=== PATIENT | female | born 1960 | race Caucasian/White ===

== ENCOUNTER 2025-04-02 09:05 | Day surgery (SDC) | payer MEDICARE, OTHER ==
[~2025-04-02 09:05] MED LIST: ceFAZolin 2 GM in Premix Bag 1 BAG IV ONE; ceFAZolin 2 GM in Sodium Chloride 0.9% 100 ML IV ONE; metroNIDAZOLE/Normal Saline 500 MG in Premix Bag 1 BAG IV ONE
[2025-04-02] MEDS ORDERED: Propofol 200 MG/20 ML SDV ONE (09:06)
[2025-04-02] MEDS ORDERED: Midazolam 1 MG/ML 2 ML SDV ONE (09:06)
[2025-04-02] MEDS ORDERED: fentaNYL 50 MCG/ML SDV ONE (09:06)
[2025-04-02] MEDS: Lactated Ringers 1,000 ML IV SCH (09:50)
== END 2025-04-02 11:20 | disposition home or self-care (01) ==
LOC: JP.SDS 09:05
PROVIDERS: ATTEND Surgery
DX: D12.3 Benign neoplasm of transverse colon (principal); D12.4 Benign neoplasm of descending colon; K57.30 Diverticulosis of large intestine without perforation or abscess without bleeding; F17.200 Nicotine dependence, unspecified, uncomplicated
CPT/HCPCS: 00811; 45380; 45385; J2250; J2704; J3010; J7120; 88305